=== PATIENT | female | born 1970 | race Caucasian/White ===

== ENCOUNTER 2016-10-09 11:07 | Emergency (ER) | payer OTHER ==
[~2016-10-09 11:07] MED LIST: AUGMENTIN 875-1 EACH PO; BUSPIRONE HCL5 MG PO; CITALOPRAM HBR40 MG PO; COLACE100 MG PO; FLUCONAZOLE150 MG PO; LEVAQUIN500 MG PO; LISINOPRIL20 MG PO; TRAMADOL HCL50 MG PO
[2016-10-09 12:06] LABS: URINE BILIRUBIN NEGATIVE (NEGATIVE); URINE BLOOD 1+ (NEGATIVE); URINE GLUCOSE (UA) NORMAL (NORMAL); URINE KETONE TRACE (NEGATIVE); URINE LEUKOCYTE ESTERASE TRACE (NEGATIVE); URINE NITRATE NEGATIVE (NEGATIVE); URINE PROTEIN TRACE (NEGATIVE); UROBILINOGEN NORMAL mg/dL (<1.0)
[2016-10-09 12:07] LABS: BASO % 0.4 % (0.1-1.2); EOS # 0.3 10_X3_uL (0.0-0.4); EOS % 2.8 % (0.7-5.8); GRAN # 6.1 10_X3_uL (1.6-6.1); GRAN % 67.7 % (34.0-71.1); HEMATOCRIT 48.5 % (34-45); HEMOGLOBIN 16.2 g/dL (11.2-15.7); LYMPH % 21.6 % (19.3-51.7); MEAN CORPUSCULAR HEMOGLOBIN 29.9 pg (27.0-33.0); MEAN CORPUSCULAR HGB CONC 33.4 g/dL (32.0-36.0); MEAN CORPUSCULAR VOLUME 89.6 fL (79-95); MEAN PLATELET VOLUME 10.3 fl (7.5-11.5); MONO # 0.7 10_X3_uL (0.2-0.9); MONO % 7.5 % (4.7-12.5); PLATELET COUNT 237 x10_3/uL (182-369); RED BLOOD COUNT 5.41 x10_6/uL (3.9-5.2); RED CELL DISTRIBUTION WIDTH 13.6 % (11.7-14.4); WHITE BLOOD COUNT 9.1 x10_3/uL (4.0-10.0)
[2016-10-09 12:24] LABS: ALBUMIN 4.2 gm/dL (3.4-5.0); ALKALINE PHOSPHATASE 90 U/L (50-136); ALT/SGPT 20 U/L (3.5-33.9); AMYLASE 50 U/L (15.62-74.58); AST/SGOT 26 U/L (7.04-26.96); BILIRUBIN,TOTAL 0.22 mg/dL (0.0-1.0); BLOOD UREA NITROGEN 13 mg/dL (7-18); CALCIUM 9.1 mg/dL (8.7-10.7); CARBON DIOXIDE 23 mmol/L (21-32); CREATININE 0.6 mg/dL (0.6-1.3); GLUCOSE,RANDOM 104 mg/dL (70-99); LIPASE 41 U/L (6.75-60.75); POTASSIUM 3.9 mmol/L (3.5-5.1); SODIUM 141 mmol/L (136-145); TOTAL PROTEIN 7.5 gm/dL (6.4-8.2)
[2016-10-09 12:35] LABS: URINE BACTERIA TRACE (NONE SEEN); URINE MUCUS TRACE; URINE RBC 0-5 /[HPF] (0-2); URINE SQUAMOUS EPITHELIAL CELL 0-10 /[HPF] (NONE SEEN); URINE WBC 0-5 /[HPF] (0-5)
== END 2016-10-09 13:35 | disposition home or self-care (01) ==
LOC: ER 11:07
PROVIDERS: General Practice
DX: N39.0 Urinary tract infection, site not specified (principal); R11.10 Vomiting, unspecified; R19.7 Diarrhea, unspecified; R10.84 Generalized abdominal pain; F17.210 Nicotine dependence, cigarettes, uncomplicated; Z79.899 Other long term (current) drug therapy; Z88.5 Allergy status to narcotic agent; Z88.8 Allergy status to other drugs, medicaments and biological substances
CPT/HCPCS: 36415; 80053; 81001; 81025; 82150; 83690; 85025; 87400; 96360; 99070; 99283-25

== ENCOUNTER 2016-10-11 10:05 | Emergency (ER) | payer OTHER | END 2016-10-11 12:59 | disposition home or self-care (01) | LOC: ER 10:05 | DX: N20.0 Calculus of kidney (principal); R11.10 Vomiting, unspecified; R42 Dizziness and giddiness; R53.1 Weakness; R10.30 Lower abdominal pain, unspecified; Z98.51 Tubal ligation status; F17.210 Nicotine dependence, cigarettes, uncomplicated; Z79.899 Other long term (current) drug therapy; Z88.5 Allergy status to narcotic agent; Z88.8 Allergy status to other drugs, medicaments and biological substances ==

== ENCOUNTER 2016-11-01 16:21 | Emergency (ER) | payer OTHER | END 2016-11-01 18:21 | disposition home or self-care (01) | LOC: ER 16:21 | DX: J32.9 Chronic sinusitis, unspecified (principal); J40 Bronchitis, not specified as acute or chronic; F32.9 Major depressive disorder, single episode, unspecified; Z98.51 Tubal ligation status; Z88.5 Allergy status to narcotic agent; Z88.8 Allergy status to other drugs, medicaments and biological substances; Z79.899 Other long term (current) drug therapy | CPT/HCPCS: 99282 ==

== ENCOUNTER → 2016-11-24 | Day surgery (SDC) | payer OTHER ==
[~2016-11-24] VITALS: Ht 170.2 cm; Wt 62.6 kg
== END ==
LOC: OPS 07:55
PROC: 0DJD8ZZ Inspection of Lower Intestinal Tract, Via Natural or Artificial Opening Endoscopic (ICD-10-PCS; principal; 2016-11-24)
DX: Z12.11 Encounter for screening for malignant neoplasm of colon (principal); F41.9 Anxiety disorder, unspecified; F32.9 Major depressive disorder, single episode, unspecified; I10 Essential (primary) hypertension; Z87.442 Personal history of urinary calculi; L40.9 Psoriasis, unspecified; Z88.5 Allergy status to narcotic agent; Z88.8 Allergy status to other drugs, medicaments and biological substances; J44.9 Chronic obstructive pulmonary disease, unspecified; F17.210 Nicotine dependence, cigarettes, uncomplicated; Z80.0 Family history of malignant neoplasm of digestive organs
CPT/HCPCS: 94664; 99070; J2704